=== PATIENT | female | born 1970 | race Caucasian/White ===

== ENCOUNTER 2017-03-01 08:05 | Emergency (ER) | payer OTHER ==
[2017-03-01] MEDS ORDERED: NORMAL SALINE 10 ML SYRINGE FLUSH IVP PRN (08:12)
--- NOTE | 2017-03-01 08:16 | PDOC ---
General Adult HPI - General Chief Complaint: Diabetic Complaint Stated Complaint: blood sugar not stabilizing Date Seen by Provider: 03/01/17 Time Seen by Provider: 08:13 Source: POSITIVE: Patient Exam Limitations: POSITIVE: No limitations Nurse's Notes Reviewed & Considered: Yes - History of Present Illness Initial Comment: Marcia is a 46-year-old female who presents to the emergency department for evaluation of hypoglycemia. Patient indicates that this morning her sugars had crashed. Per nursing and medic report she was in the 30s was given D50 woke up and then did tolerate oral intake. Her sugars improved in the 100s and on recheck return back down to the 90s. Patient is currently asymptomatic at this time. Though she is worried about her blood sugars. She is a type I diabetic and takes long-acting insulin in the evening. Patient reports she did eat a meal last night. She has not been ill recently. She had a sinus infection approximately 2 weeks ago and treated with a Kenalog shot. Have you received a tetanus shot in the past 10 years?: Unknown - Patient Home Medications Home Medications: Home Medications FLUoxetine HCl [PROzac] 20 mg PO DAILY 03/01/17 Insulin Aspart [Novolog] 100 unit SQ PRN 03/01/17 Insulin Glargine SoloStar Inj [Lantus SoloStar Inj] 1 ml SUBCUT PRN 03/01/17 Mv,Ca,Min/Iron Fum/FA/Vit K [Multi For Her Tablet] 1 tab PO DAILY 03/01/17 Nabumetone [Relafen] 500 mg PO DAILY 03/01/17 Phentermine HCl 15 mg PO PRN 03/01/17 traZODone Tab [Desyrel Tab] 50 mg PO BEDTIME PRN 03/01/17 - Patient Allergies Allergies/Adverse Reactions: Allergies Allergy/AdvReac Type Severity Reaction Status Date / Time Penicillins Allergy HIVES Verified 03/01/17 08:06 Past Medical History - heen HEENT History: Denies History Cardiovascular History: Denies History Respiratory History: Denies History Gastrointestinal History: Denies History Genitourinary History: Denies History Endocrine History: Type 1 Diabetes Musculoskeletal History: Denies History Neurological History: Denies History Blood Disorders: Denies History Psychiatric History: Depression, Anxiety Disorders Previous Surgical History: Yes Type / Date of Surgery: C section x2, oophrectomy, [place] Significant Family History: No pertinent family hx Past Medical History Reviewed: Reviewed - Changes Made ROS - Limitations ROS Limitations: No Limitations Constitution: DENIES: Chills, Fever Cardiovascular: DENIES: Chest Pain Respiratory: REPORTS: Denies Resp Symptoms Neurological: REPORTS: Dizziness Gastrointestinal: REPORTS: Denies GI Symptoms Endocrine: REPORTS: Low Glucose Musculoskeletal: REPORTS: Denies MS Symptoms Genitourinary: REPORTS: Denies Symptoms Eyes: REPORTS: Denies Symptoms ENT: REPORTS: Denies Symptoms Skin: REPORTS: Denies Skin Symptoms Lympathic: REPORTS: Denies Lympathic Symptoms Immunologic: POSITIVE: Denies Symptoms Psychiatric: POSITIVE: Denies Psych Symptoms General Adult Exam - General Appearance General Appearance: POSITIVE: Alert, Cooperative, No Acute Distress, No Evidence of Trauma - HEENT HEENT: POSITIVE: Head Inspection Nml, Eyes Inspection Nml - Pupils Pupil Size: 4 mm: Bilateral - Neck Neck: POSITIVE: Normal Inspection - Respiratory Respiratory: POSITIVE: No Respiratory Distress, Breath Sounds Normal - Cardiovascular Cardiovascular: POSITIVE: Regular Rate & Rhythm, No Murmur, No Gallop - Abdomen Abdomen: Soft: (All Quadrants), Normal Bowel Sounds: (All Quadrants), Denies Tenderness: (All Quadrants), No Guarding: (All Quadrants), No Rebound: (All Quadrants) - Skin Skin: POSITIVE: Normal Color, Warm, Dry - Extremities Extremity: Non-Tender: (RLE), (LLE), Normal Inspection: (RLE), (LLE) - Neurological / Psychological Neurological: POSITIVE: Affect Apporpriate, Oriented X3 General Adult Progress - Results Reviewed by me Lab Results:: Laboratory Results 03/01/17 Range/Units 08:37 WBC 6.56 (4.8-10.8) 10^3/uL RBC 4.98 (4.20-5.40) 10^6/uL Hgb 13.9 (12.0-16.0) g/dL Hct 42.5 (37.0-47.0) % MCV 85.3 (81-99) FL MCH 27.9 (27-31) PG MCHC 32.7 L (33-37) g/dL RDW Std Deviation 41.9 (39-50) fL RDW Coeff of Jennifer 13.7 (11.5-14.5) % Plt Count 397 H (140-350) 10*3/uL MPV 8.3 (7.4-12.2) FL Immature Gran % (Auto) 0.2 (0-5) % Neut % (Auto) 75.4 (50-80) % Lymph % (Auto) 15.5 (10-50) % [place] % (Auto) 7.8 (5-15) % Eos % (Auto) 0.3 (0-8) % Baso % (Auto) 0.8 (0-1) % Immature Gran # (Auto) 0.01 10*3/UL Neut # (Auto) 4.95 10*3/UL Lymph # (Auto) 1.02 10*3/uL [place] # (Auto) 0.51 (0.3-0.8) 10*3/UL Eos # (Auto) 0.02 10*3/UL Baso # (Auto) 0.05 10*3/UL WBC Morphology Comment Normal morphology (NORM) Plt Morphology Comment Normal morphology (NORM) RBC Morph Comment Normal morphology (NORM) Sodium 139 (135-145) meq/L Potassium 3.6 L (3.8-5.2) meq/L Chloride 104 (98-112) meq/L Carbon Dioxide 25 (23-33) meq/L Anion Gap 10 (5-20) BUN 9 (7-22) mg/dL Creatinine 0.6 (0.50-1.20) mg/dL Estimated GFR > 60 (>60 ml/min/1.73m(2)) BUN/Creatinine Ratio 15.00 (6-20) Glucose 191 H (78-110) mg/dL Calculated Osmolality 291.0 (267-292) mOsm/kg Calcium 8.4 L (8.7-10.7) mg/dL Total Bilirubin 0.6 (0.3-1.2) mg/dL AST 18 (8-39) IU/L ALT 28 (9-52) IU/L Alkaline Phosphatase 96 (38-126) IU/L Total Protein 6.9 (6.1-8.0) g/dL Albumin 3.5 (3.5-4.8) g/dL Globulin 3.4 (2.50-4.10) g/dL Albumin/Globulin Ratio 1.00 L (1.3-2.0) mg/g - Patient's Progress MDM / ED Course: Marcia is a 46-year-old female who presents to the emergency department for evaluation of hypoglycemia. She does not recall exactly what had happened, but was noted to be hypoglycemic. Her vital signs are unremarkable and examination demonstrates well-appearing female. Differential diagnosis includes but is not limited to symptomatic hypoglycemia, infection, electrolyte abnormality. Patient's CBC here is unremarkable without evidence to suggest infection. Chemistry panel does demonstrate improved glucose 191. Urinalysis is pending at this time. Plan is to keep patient for at least 1 more hour for repeat glucose check to ensure stability. If glucose remained stable had this may be an episode of nocturnal hypoglycemia. In addition patient's doctor had increased her Lantus though this was approximately 2 weeks ago by 5 units. Patient was signed out to Dr. Alexandra pending repeat glucose and urinalysis. Patient Care Time - Estimated PCT Patient Care Time (In Minutes): 25 Vital Signs - Recent Vital Signs Vital Signs: Vital Signs (Last 8 hours) Temp Pulse Resp BP Pulse Ox 03/01/17 08:05 97.4 F 85 16 140/80 97 - VS Reviewed Vital Signs Reviewed: Yes Discharge Clinical Impression: Hypoglycemia Discharge Disposition: Other (Patient care transferred to Dr. Alexandra at 9:00) Condition: Stable
[2017-03-01 08:26] VITALS: RESP 16; TEMP 97.4
[2017-03-01 08:46] LABS: BASOPHILS # (AUTO) 0.05 10*3/UL; BASOPHILS % (AUTO) 0.8 % (0-1); EOSINOPHILS # (AUTO) 0.02 10*3/UL; EOSINOPHILS % (AUTO) 0.3 % (0-8); HEMATOCRIT 42.5 % (37.0-47.0); HEMOGLOBIN 13.9 g/dL (12.0-16.0); LYMPHOCYTES # (AUTO) 1.02 10*3/uL; MEAN CORPUSCULAR HEMOGLOBIN 27.9 PG (27-31); MEAN CORPUSCULAR HGB CONC 32.7 g/dL (33-37); MEAN CORPUSCULAR VOLUME 85.3 FL (81-99); MEAN PLATELET VOLUME 8.3 FL (7.4-12.2); MONOCYTES # (AUTO) 0.51 10*3/UL (0.3-0.8); MONOCYTES % (AUTO) 7.8 % (5-15); NEUTROPHILS # (AUTO) 4.95 10*3/UL; NEUTROPHILS % (AUTO) 75.4 % (50-80); RED BLOOD COUNT 4.98 10^6/uL (4.20-5.40)
[2017-03-01 08:48] LABS: PLATELET MORPHOLOGY COMMENT NORMAL MORPHOLOGY (NORM); RBC MORPHOLOGY COMMENT NORMAL MORPHOLOGY (NORM); WBC MORPHOLOGY COMMENT NORMAL MORPHOLOGY (NORM)
[2017-03-01 08:49] LABS: BLOOD UREA NITROGEN 9 mg/dL (7-22); CALCIUM 8.4 mg/dL (8.7-10.7); EST GLOMERULAR FILTRATION > 60 (>60 ml/min/1.73m(2)); SERUM ALBUMIN 3.5 g/dL (3.5-4.8)
[2017-03-01 09:56] LABS: BILIRUBIN,URINE NEGATIVE (NEG); CLARITY,URINE CLEAR (CLEAR); COLOR,URINE YELLOW; GLUCOSE, URINE (UA) 500 mg/dL (NEG); NITRATE,URINE NEGATIVE (NEG); OCCULT BLOOD,URINE NEGATIVE (NEG); PH,URINE 5.5 (5.0-8.5); PROTEIN,URINE NEGATIVE (NEG); URINE SAMPLE TYPE CLEAN CATCH URINE; UROBILINOGEN,URINE 0.2 EU/dL (0.2)
--- NOTE | 2017-03-01 10:27 | PDOC ---
Transfer of Care - Care Accepted Time Care Transferred: 09:00 Report from Transferring Physician Received: Yes MDM / ED Course: The patient is a 46-year-old female who is brought to the emergency department after an episode of hypoglycemia this morning. The patient is an insulin- requiring diabetic who apparently was unresponsive this morning. EMS was called and her blood sugar was found to be in the 30s. She received an amp of D50 at home at which time she woke up. She was able to eat a little bit at home however her blood sugar main only in the 90s so she was transported here to the emergency room for evaluation. Dr. Douglas evaluated the patient initially and has ordered some tests and urinalysis which are pending. In addition he had the patient eat some breakfast. Home Medications: Home Medications FLUoxetine HCl [PROzac] 20 mg PO DAILY 03/01/17 Insulin Aspart [Novolog] 100 unit SQ PRN 03/01/17 Insulin Glargine SoloStar Inj [Lantus SoloStar Inj] 1 ml SUBCUT PRN 03/01/17 Mv,Ca,Min/Iron Fum/FA/Vit K [Multi For Her Tablet] 1 tab PO DAILY 03/01/17 Nabumetone [Relafen] 500 mg PO DAILY 03/01/17 Phentermine HCl 15 mg PO PRN 03/01/17 traZODone Tab [Desyrel Tab] 50 mg PO BEDTIME PRN 03/01/17 Allergies/Adverse Reactions: Allergies Penicillins Allergy (Verified 03/01/17 08:06) HIVES Vital Signs Reviewed: Yes Nurse's Notes Reviewed & Considered: Yes - Pending Patient Care Items Pending Patient Care Items: POSITIVE: Labs - Re-Evaluation of Patient Disposition of Patient: POSITIVE: Discharged Counseled: POSITIVE: Patient, Family, RE: Lab Results, RE: DX Pending Test Results Documented: Yes Clinical Impression Documented: Yes - Results Reviewed Lab Results Reviewed by Me: Yes Lab Results: Laboratory Results 03/01/17 03/01/17 Range/Units 08:37 09:35 WBC 6.56 (4.8-10.8) 10^3/uL RBC 4.98 (4.20-5.40) 10^6/uL Hgb 13.9 (12.0-16.0) g/dL Hct 42.5 (37.0-47.0) % MCV 85.3 (81-99) FL MCH 27.9 (27-31) PG MCHC 32.7 L (33-37) g/dL RDW Std Deviation 41.9 (39-50) fL RDW Coeff of Jennifer 13.7 (11.5-14.5) % Plt Count 397 H (140-350) 10*3/uL MPV 8.3 (7.4-12.2) FL Immature Gran % (Auto) 0.2 (0-5) % Neut % (Auto) 75.4 (50-80) % Lymph % (Auto) 15.5 (10-50) % [place] % (Auto) 7.8 (5-15) % Eos % (Auto) 0.3 (0-8) % Baso % (Auto) 0.8 (0-1) % Immature Gran # (Auto) 0.01 10*3/UL Neut # (Auto) 4.95 10*3/UL Lymph # (Auto) 1.02 10*3/uL [place] # (Auto) 0.51 (0.3-0.8) 10*3/UL Eos # (Auto) 0.02 10*3/UL Baso # (Auto) 0.05 10*3/UL WBC Morphology Comment Normal morphology (NORM) Plt Morphology Comment Normal morphology (NORM) RBC Morph Comment Normal morphology (NORM) Sodium 139 (135-145) meq/L Potassium 3.6 L (3.8-5.2) meq/L Chloride 104 (98-112) meq/L Carbon Dioxide 25 (23-33) meq/L Anion Gap 10 (5-20) BUN 9 (7-22) mg/dL Creatinine 0.6 (0.50-1.20) mg/dL Estimated GFR > 60 (>60 ml/min/1.73m(2)) BUN/Creatinine Ratio 15.00 (6-20) Glucose 191 H (78-110) mg/dL Calculated Osmolality 291.0 (267-292) mOsm/kg Calcium 8.4 L (8.7-10.7) mg/dL Total Bilirubin 0.6 (0.3-1.2) mg/dL AST 18 (8-39) IU/L ALT 28 (9-52) IU/L Alkaline Phosphatase 96 (38-126) IU/L Total Protein 6.9 (6.1-8.0) g/dL Albumin 3.5 (3.5-4.8) g/dL Globulin 3.4 (2.50-4.10) g/dL Albumin/Globulin Ratio 1.00 L (1.3-2.0) mg/g Ur Collection Type Clean catch urine Urine Color Yellow Urine Clarity Clear (CLEAR) Urine pH 5.5 (5.0-8.5) Ur Specific [place] 1.010 (1.005-1.030) Urine Protein Negative (NEG) mg/dl Urine Glucose (UA) 500 (NEG) mg/dL Urine Ketones Negative (NEG) Urine Occult Blood Negative (NEG) Urine Nitrate Negative (NEG) Urine Bilirubin Negative (NEG) Urine Urobilinogen 0.2 (0.2) EU/dL Ur Leukocyte Esterase Negative (NEG) Ur Culture Indicated? Culture not set - Consult Recommendations:: On repeat evaluation the patient stated that she was feeling much better. She was able to get up and walk to the bathroom. She also ate breakfast. Approximately an hour after eating her blood sugar was 309. Her CBC and CMP are essentially unremarkable except for a blood sugar of 190 at the time the blood was drawn. In addition her urinalysis is normal. At this time the patient appears to be stable for discharge home. She was advised to monitor blood sugars closely. She will continue her NovoLog sliding scale. In addition she was advised to cut back on her Lantus dosage by 5 units if her blood sugar is below 200 tonight. In addition she was advised to eat a small snack prior to going to sleep. She will return to the emergency room if any worsening or change in symptoms. She is advised to follow-up with her primary care provider in 3-5 days. Patient Care Time - Estimated PCT Patient Care Time (In Minutes): 10 Vital Signs - Recent Vital Signs Vital Signs: Vital Signs (Last 8 hours) Temp Pulse Resp BP Pulse Ox 03/01/17 08:05 97.4 F 85 16 140/80 97 - VS Reviewed Vital Signs Reviewed: Yes Discharge Clinical Impression: Hypoglycemia Condition: Stable Patient Instructions Given at Discharge: Hypoglycemia in a Person with Diabetes (ED) Additional Instructions: Her blood sugar appears to have stabilized and is actually elevated likely because of the sugar that was given through the IV and breakfast. Recommend following her sliding scale for NovoLog insulin today. Recommend cutting back your Lantus dose by 5 units if your blood sugar is below 200 tonight. Also recommend eating a small snack prior to going to bed. Monitor blood sugars closely. Return to the emergency room if any worsening or change in symptoms. Follow-up with primary care in 3-5 days to discuss ongoing insulin regimen recommendations. Follow Up With: ALEXANDREA COHN [Primary Care Provider] -
== END 2017-03-01 10:20 | disposition home or self-care (01) ==
LOC: SUPCPDRO 08:05 → ER 08:05
DX: E10.649 Type 1 diabetes mellitus with hypoglycemia without coma (principal); Z79.4 Long term (current) use of insulin
CPT/HCPCS: 36415; 80053; 81003; 85025; 99283

== ENCOUNTER 2017-04-24 18:07 | Emergency (ER) | payer OTHER ==
[2017-04-24] MEDS ORDERED: DEXTROSE 50%-WATER SYRINGE 50 ML SYRINGE IVP ONE (18:14)
[2017-04-24] MEDS ORDERED: Sodium Chloride 0.9% 1,000 ML PRIMARY IV ONE (18:14)
[2017-04-24] MEDS ORDERED: NORMAL SALINE 10 ML SYRINGE FLUSH IVP PRN (18:14)
[2017-04-24] MEDS ORDERED: DEXTROSE 50%-WATER SYRINGE 50 ML SYRINGE ONE (18:17)
[2017-04-24 18:20] LABS: BASOPHILS # (AUTO) 0.06 10*3/UL; BASOPHILS % (AUTO) 0.5 % (0-1); EOSINOPHILS # (AUTO) 0.09 10*3/UL; EOSINOPHILS % (AUTO) 0.7 % (0-8); HEMATOCRIT 42.1 % (37.0-47.0); HEMOGLOBIN 14.4 g/dL (12.0-16.0); LYMPHOCYTES # (AUTO) 3.31 10*3/uL; MEAN CORPUSCULAR HEMOGLOBIN 28.7 PG (27-31); MEAN CORPUSCULAR HGB CONC 34.2 g/dL (33-37); MEAN PLATELET VOLUME 8.3 FL (7.4-12.2); MONOCYTES % (AUTO) 7.9 % (5-15); NEUTROPHILS # (AUTO) 8.11 10*3/UL; NEUTROPHILS % (AUTO) 64.2 % (50-80); PLATELET MORPHOLOGY COMMENT NORMAL MORPHOLOGY (NORM); RBC MORPHOLOGY COMMENT NORMAL MORPHOLOGY (NORM); RED BLOOD COUNT 5.01 10^6/uL (4.20-5.40); WBC MORPHOLOGY COMMENT NORMAL MORPHOLOGY (NORM)
[2017-04-24 18:29] LABS: BLOOD UREA NITROGEN 13 mg/dL (7-22); BUN/CREATININE RATIO 21.66 (6-20); EST GLOMERULAR FILTRATION > 60 (>60 ml/min/1.73m(2)); SERUM ALBUMIN 4.1 g/dL (3.5-4.8)
--- NOTE | 2017-04-24 18:38 | PDOC ---
General Adult HPI - General Chief Complaint: Diabetic Complaint Stated Complaint: LOW BLOOD SUGARS Date Seen by Provider: 04/24/17 Time Seen by Provider: 18:05 Source: POSITIVE: Patient, EMS Exam Limitations: POSITIVE: No limitations, Clinical condition (Question secondary to low blood sugar) Nurse's Notes Reviewed & Considered: Yes EMS Report Reviewed & Considered: Verbal - History of Present Illness Initial Comment: The patient is a 47-year-old female who is brought to the emergency department by ambulance with low blood sugar. She is a known type I diabetic. Apparently she was not feeling well and her blood sugar was 35. She had tried eating something and did not seem to be getting any better. EMS was notified and when they arrived her blood sugar was still low in the 30s. She was given several different things to eat and her sugar was not improving. The patient remains awake however is somewhat confused and slow to answer questions. On arrival her blood sugar is still 25. She is awake and answers questions however is somewhat slow to answer. She denies any current pain, any recent illness. She last ate at lunch time and thinks she last took her insulin then as well. She has been packing this afternoon. Have you received a tetanus shot in the past 10 years?: Yes - Patient Home Medications Home Medications: Home Medications FLUoxetine HCl [PROzac] 20 mg PO DAILY 03/01/17 Insulin Aspart [Novolog] 100 unit SQ PRN 03/01/17 Insulin Glargine SoloStar Inj [Lantus SoloStar Inj] 1 ml SUBCUT PRN 03/01/17 Mv,Ca,Min/Iron Fum/FA/Vit K [Multi For Her Tablet] 1 tab PO DAILY 03/01/17 Nabumetone [Relafen] 500 mg PO DAILY 03/01/17 Phentermine HCl 15 mg PO PRN 03/01/17 traZODone Tab [Desyrel Tab] 50 mg PO BEDTIME PRN 03/01/17 - Patient Allergies Allergies/Adverse Reactions: Allergies Allergy/AdvReac Type Severity Reaction Status Date / Time Penicillins Allergy HIVES Verified 03/01/17 08:06 Past Medical History - heанна HEENT History: Denies History Cardiovascular History: Denies History Respiratory History: Denies History Gastrointestinal History: Denies History Genitourinary History: Denies History Endocrine History: Type 1 Diabetes Musculoskeletal History: Denies History Neurological History: Denies History Blood Disorders: Denies History Psychiatric History: Depression, Anxiety Disorders Cancer History: Denies History History of MDRO: No Alcohol Use: Rarely Substance Use Type: None Previous Surgical History: Yes Type / Date of Surgery: x2, oophorectomy, laser ablation, fanny Anesthesia Reactions: No Significant Family History: No pertinent family hx Past Medical History Reviewed: Reviewed - No Changes ROS - Limitations ROS Limitations: No Limitations Cardiovascular: DENIES: Chest Pain Respiratory: REPORTS: Denies Resp Symptoms Neurological: REPORTS: Confusion. DENIES: Headache, Numbness, Weakness Gastrointestinal: REPORTS: Denies GI Symptoms Musculoskeletal: REPORTS: Denies MS Symptoms Eyes: REPORTS: Denies Symptoms ENT: REPORTS: Denies Symptoms Skin: DENIES: Rash General Adult Exam - General Appearance General Appearance: POSITIVE: Other (Patient is awake however somewhat slow to respond) - HEENT HEENT: POSITIVE: Head Inspection Nml, Eyes Inspection Nml, Ears Inspection Nml, Pharynx Inspect. Nml - Neck Neck: POSITIVE: Normal Inspection - Respiratory Respiratory: POSITIVE: No Respiratory Distress, Breath Sounds Normal - Cardiovascular Cardiovascular: POSITIVE: Regular Rate & Rhythm, No Murmur Peripheral Pulses: Dorsalis-pedis (R): 2+, Dorsalis-pedis (L): 2+ - Abdomen Abdomen: Soft: (All Quadrants), Denies Tenderness: (All Quadrants), No Distention: (All Quadrants) General Adult Progress - Results Reviewed by me Lab Results Reviewed: Yes Lab Results:: Laboratory Results 04/24/17 Range/Units 18:14 WBC 12.63 H (4.8-10.8) 10^3/uL RBC 5.01 (4.20-5.40) 10^6/uL Hgb 14.4 (12.0-16.0) g/dL Hct 42.1 (37.0-47.0) % MCV 84.0 (81-99) FL MCH 28.7 (27-31) PG MCHC 34.2 (33-37) g/dL RDW Std Deviation 40.9 (39-50) fL RDW Coeff of Jennifer 13.5 (11.5-14.5) % Plt Count 442 H (140-350) 10*3/uL MPV 8.3 (7.4-12.2) FL Immature Gran % (Auto) 0.5 (0-5) % Neut % (Auto) 64.2 (50-80) % Lymph % (Auto) 26.2 (10-50) % [place] % (Auto) 7.9 (5-15) % Eos % (Auto) 0.7 (0-8) % Baso % (Auto) 0.5 (0-1) % Immature Gran # (Auto) 0.06 10*3/UL Neut # (Auto) 8.11 10*3/UL Lymph # (Auto) 3.31 10*3/uL [place] # (Auto) 1.00 H (0.3-0.8) 10*3/UL Eos # (Auto) 0.09 10*3/UL Baso # (Auto) 0.06 10*3/UL WBC Morphology Comment Normal morphology (NORM) Plt Morphology Comment Normal morphology (NORM) RBC Morph Comment Normal morphology (NORM) Sodium 142 (135-145) meq/L Potassium 3.1 L (3.8-5.2) meq/L Chloride 107 (98-112) meq/L Carbon Dioxide 22 L (23-33) meq/L Anion Gap 13 (5-20) BUN 13 (7-22) mg/dL Creatinine 0.6 (0.50-1.20) mg/dL Estimated GFR > 60 (>60 ml/min/1.73m(2)) BUN/Creatinine Ratio 21.66 H (6-20) Glucose 33 L* (78-110) mg/dL Calculated Osmolality 289.0 (267-292) mOsm/kg Calcium 9.0 (8.7-10.7) mg/dL Total Bilirubin 0.6 (0.3-1.2) mg/dL AST 26 (8-39) IU/L ALT 34 (9-52) IU/L Alkaline Phosphatase 98 (38-126) IU/L Total Protein 7.8 (6.1-8.0) g/dL Albumin 4.1 (3.5-4.8) g/dL Globulin 3.6 (2.50-4.10) g/dL Albumin/Globulin Ratio 1.10 L (1.3-2.0) mg/g - Patient's Progress MDM / ED Course: On arrival here in the emergency department her fingerstick blood sugar was 25. She was awake however was slow to answer questions. She will be tried several oral glucose solutions and her blood sugar did not seem to be responding. An IV was established and she received an amp of D50. After administration of this her blood sugar came up into the 190s and she was feeling back to normal. She was responding to questions normally at that point. She was able to eat crackers and peanut butter here and her blood sugar was maintaining. She was advised to decrease her evening dose of Lantus until she can follow-up with her primary care physician. She'll monitor blood sugars closely. Return to the emergency room if any worsening or change in symptoms. - Consult Counseled: POSITIVE: Patient, RE: Lab Results, RE: DX, RE: Need for F/U Patient Care Time - Estimated PCT Patient Care Time (In Minutes): 20 Vital Signs - VS Reviewed Vital Signs Reviewed: Yes (written nursing documentation reviewed) Discharge Clinical Impression: Hypoglycemia Discharge Disposition: Discharged to Home Condition: Stable Patient Instructions Given at Discharge: Hypoglycemia in a Person with Diabetes (ED) Additional Instructions: Monitor blood sugars closely. Return to the emergency room if any worsening or change in symptoms. Follow-up with primary care if continued issues with blood sugar control in 3-5 days. Follow Up With: ALEXANDREA COHN [Primary Care Provider] -
[2017-04-25 07:21] VITALS: RESP 20; TEMP 97.8
== END 2017-04-24 19:00 | disposition home or self-care (01) ==
LOC: ER 18:07
DX: E10.649 Type 1 diabetes mellitus with hypoglycemia without coma (principal); R41.0 Disorientation, unspecified
CPT/HCPCS: 80053; 85025; 96374; 99283; J7030